=== PATIENT | female | born 1975 | race Caucasian/White ===

== ENCOUNTER → 2021-12-05 14:57 | Outpatient (BNVA) | payer OTHER, SELFPAY | PROVIDERS: PCP Internal Medicine; Visit Provider Nurse Practitioner Family | DX: M54.16 Radiculopathy, lumbar region (principal) | CPT/HCPCS: 99202 ==

== ENCOUNTER 2022-01-21 06:12 | Outpatient (REF) | payer OTHER, SELFPAY ==
--- NOTE | ~2022-01-21 | FL_ITS ---
EXAMINATION: XR FLUOROSCOPY WITH IMAGES CLINICAL INFORMATION: M54.16 - Radiculopathy, lumbar region COMPARISON: CT abdomen and pelvis 08/04/2018 TECHNIQUE: Fluoroscopy performed by Dr. Luc Becker. Fluoroscopy time: 0.1 minutes DAP: 0.293 Gycm2 Images: 2 FINDINGS: There is spinal needle just left of midline at the L4 interlaminar space. FL/FL guidance in treatment room IMPRESSION: Fluoroscopy for pain management procedure.
== END 2022-01-21 06:13 | disposition home or self-care (01) ==
LOC: HO.RADIR 06:12
PROVIDERS: Visit Provider Internal Medicine
DX: M54.16 Radiculopathy, lumbar region (principal)
CPT/HCPCS: 62323; J1040; Q9967

== ENCOUNTER → 2022-02-20 08:04 | Outpatient (BNVA) | payer OTHER, SELFPAY | PROVIDERS: PCP Internal Medicine; Visit Provider Nurse Practitioner Family | DX: M53.3 Sacrococcygeal disorders, not elsewhere classified (principal) | CPT/HCPCS: 99212 ==

== ENCOUNTER 2022-04-24 06:52 | Outpatient (REF) | payer OTHER, SELFPAY ==
--- NOTE | ~2022-04-24 | FL_ITS ---
EXAMINATION: XR FLUOROSCOPY WITH IMAGES CLINICAL INFORMATION: Right sacroiliac joint injection. COMPARISON: None. TECHNIQUE: Fluoroscopy performed by: Rhonda Park. FLUOROSCOPY TIME: 12.1 seconds DAP: 34.43 uGy-cm2 FLUOROSCOPIC IMAGES: 2 FINDINGS: There is a needle positioned at the right SI joint on AP and lateral views. No contrast. There is mild loss of L5-S1 disc height. There is minimal ventral spondylosis at L4-L5 disc level. FL/FL guidance in treatment room IMPRESSION: Fluoroscopy guidance was provided to referring physician for right SI joint injection.
== END 2022-04-24 06:53 | disposition home or self-care (01) ==
LOC: HO.RADIR 06:52
PROVIDERS: Visit Provider Internal Medicine
DX: M54.16 Radiculopathy, lumbar region (principal); M53.3 Sacrococcygeal disorders, not elsewhere classified
CPT/HCPCS: 27096; J1020

== ENCOUNTER 2022-06-03 15:05 | Emergency (ER) | payer OTHER, SELFPAY ==
[2022-06-03 15:38] VITALS: BP 125/84; PULSE 66; RESP 16; TEMP 36.7; O2SAT 97; BMI 27.3
--- NOTE | 2022-06-03 17:29 | ED_ITS ---
HPI - Allergic Reaction General Chief complaint: Allergic Reaction Stated complaint: ?allergic reaction,hives Time Seen by Provider: 06/03/22 17:11 Source: patient Mode of arrival: ambulatory Limitations: no limitations History of Present Illness HPI narrative: Patient comes to the emergency room complaining of poison christina versus poison oak. Patient has been gardening for the last couple of days. Patient has vesicle like rash in her face, chest and upper extremities. Patient states that she was exposed to the plants approximately 2 days ago, but 2 days later she started having the rash. Patient denies chest pain or shortness of breath, no oropharyngeal swelling Related Data Home Medications Medication Instructions Recorded Confirmed estradiol 0.5 mg tablet 0.5 mg PO BEDTIME 12/05/21 12/05/21 gabapentin 100 mg capsule 100 mg PO DAILY 12/05/21 12/05/21 Previous Rx's Medication Instructions Recorded hydrocortisone 2.5 % topical cream 1 appl topical TID #20 grams 06/03/22 prednisone 20 mg tablet 40 mg PO DAILY #3 tabs 06/03/22 Allergies Allergy/AdvReac Type Severity Reaction Status Date / Time shellfish derived Allergy Unknown HIVES Verified 06/03/22 15:38 [SHELLFISH DERIVED] amoxicillin [From Augmentin] AdvReac Severe Diarrhea Verified 06/03/22 15:38 clavulanic acid AdvReac Severe Diarrhea Verified 06/03/22 15:38 [From Augmentin] From Percocet AdvReac Mild STOMACH Uncoded 04/24/22 08:11 UPSET Review of Systems Review of Systems: Constitutional : No Weight loss, No Fever, No Chills, No Night Sweats, No Fatigue, No Malaise ENT/Mouth : No Hearing loss, No Ear Pain, No Nasal Congestion, No Sinus Pain, No Hoarseness, No sore throat, No Rhinorrhea, No Swallowing Difficulty Eyes: No Eye Pain, No Swelling, No Redness, No Foreign Body, No Discharge, No Vision Changes Cardiovascular : No Chest Pain, No SOB, No Dyspnea on Exertion, No Orthopnea, No Edema, No Palpitations Respiratory : No Cough, No Sputum, No Wheezing, No Smoke Exposure, No Dyspnea Gastrointestinal : No Nausea, No Vomiting, No Diarrhea, No Constipation, No abdominal Pain, No Hematochezia, No Melena Genitourinary : no irregular bleeding, No Dysuria, No Urinary Frequency, No Hematuria, No Urinary Incontinence, No Urgency, No Flank Pain, No Urinary Flow Changes, No Hesitancy Musculoskeletal : No joint pain, No Myalgias, No Joint Swelling Skin : Complaining of poison oak versus poison christina rash Neuro : No Weakness, No Numbness, No Paresthesias, No Loss of Consciousness, No Dizziness, No Headache Psych : No Anxiety/Panic, No Depression, No SI/HI/AH/VH, No Social Issues, Heme/Lymph: No Bruising, No Bleeding,No Lymphadenopathy Endocrine : No Polyuria, No Polydipsia, No Temperature Intolerance [facility] Past Medical History Medical History Bilateral breast cysts Congenital renal agenesis and dysgenesis Former smoker GERD (gastroesophageal reflux disease) IBS (irritable bowel syndrome) Lumbar degenerative disc disease Migraines Mild intermittent asthma without complication Social History Social History Advance Directives: No Advance Directives Information Provided: No Physical Exam ED Vital Signs: Vital Signs - 24 hr 06/03/22 15:38 Temperature 98.1 F Pulse Rate 66 Respiratory Rate 16 Blood Pressure 125/84 Pulse Oximetry 97 Oxygen Delivery Method Room Air BMI result Body Mass Index 27.3 Const Other: Appearance: Alert. Oriented X3. No acute distress. Eyes: Pupils equal, round and reactive to light. ENT: Pharynx normal. Neck: Normal inspection. Neck supple. No lymph nodes noted. No crepitus CVS: Normal heart rate and rhythm. Pulses normal. Normal S1 and S2 Respiratory: No respiratory distress. Breath sounds normal. No Wheezing. No rales Abdomen: Soft and nontender. No rigidity. No distention. Skin: Skin warm and dry. Very mild vesicle like rash in upper extremities, face and chest Extremities: No lower extremity edema. No Lacerations. No Rash Neuro: Oriented X 3. No motor deficit. No sensory deficit. Moving all extremities. No slurred speech. CN 2 through 12 grossly intact Psych: calm, cooperative, normal affect Course Course Course Narrative: Patient was given 1 dose of p.o. prednisone. Patient will continue prednisone for a few more days and also topical hydrocortisone Discharge Plan Discharge Clinical Impression: Dermatitis due to plants, including poison christina, sumac, and oak Patient Disposition: Home, Self-Care Instructions: Poison Christina (ED), Cold Compress or Soak (ED) Additional Instructions: Please follow-up with your primary care physician tomorrow. If you have any worsening or new symptoms, please return to the emergency room or call 911 Prescriptions: New prednisone 20 mg tablet 40 mg PO DAILY Qty: 3 0RF hydrocortisone 2.5 % cream 1 appl topical TID Qty: 20 0RF No Action estradiol 0.5 mg tablet 0.5 mg PO BEDTIME gabapentin 100 mg capsule 100 mg PO DAILY
[2022-06-03] MEDS: predniSONE 20 MG TABLET 40 MG PO (17:45)
== END 2022-06-03 17:54 | disposition home or self-care (01) ==
PROVIDERS: Emergency Provider Emergency Medicine; PCP Internal Medicine
DX: L23.7 Allergic contact dermatitis due to plants, except food (principal)
CPT/HCPCS: 99283

== ENCOUNTER 2022-07-08 06:00 | Outpatient (REF) | payer OTHER, SELFPAY | END 2022-07-08 06:01 | disposition home or self-care (01) | LOC: HO.RADIR 06:00 | PROVIDERS: Visit Provider Internal Medicine | DX: Z13.89 Encounter for screening for other disorder (principal) ==

== ENCOUNTER 2022-07-15 06:08 | Outpatient (REF) | payer OTHER, SELFPAY ==
--- NOTE | ~2022-07-15 | FL_ITS ---
EXAMINATION: XR FLUOROSCOPY WITH IMAGES CLINICAL INFORMATION: Radiculopathy lumbar region. COMPARISON: None. TECHNIQUE: Fluoroscopy performed by Dr. Luc Becker. Fluoroscopy time: 0.2 minutes. Cumulative Dose: 5.68 mGy. DAP: 0.779 Gy-cm2. Images: 2. FINDINGS: There is needle positioned in the posterior pleural space at the L4-L5 disc level with contrast opacifying the space. The visualized bones are grossly unremarkable. FL/FL guidance in treatment room IMPRESSION: Fluoroscopy guidance was provided to the referrer for pain management.
== END 2022-07-15 06:09 | disposition home or self-care (01) ==
LOC: CF 06:08
PROVIDERS: Visit Provider Internal Medicine
DX: M54.16 Radiculopathy, lumbar region (principal)
CPT/HCPCS: 62323; J1040; J1100

== ENCOUNTER → 2022-08-17 14:15 | Outpatient (BNVA) | payer OTHER, SELFPAY | PROVIDERS: PCP Internal Medicine; Visit Provider Internal Medicine | DX: M54.16 Radiculopathy, lumbar region (principal) | CPT/HCPCS: 99212 ==

== ENCOUNTER 2022-10-14 06:04 | Outpatient (REF) | payer OTHER, SELFPAY ==
--- NOTE | ~2022-10-14 | FL_ITS ---
EXAMINATION: XR FLUOROSCOPY WITH IMAGES CLINICAL INFORMATION: Radiculopathy. COMPARISON: Fluoroscopy guidance 07/07/2022 for pain management TECHNIQUE: Fluoroscopy Supervised By: Shelli Vazquez. Fluoroscopy Time: 0.1 minutes. DAP: 0.197 Gycm2. Images: 2. FINDINGS: 2 views of lumbar spine reveal a needle positioned at the L4-L5 disc level with contrast opacifying the posterior epidural space. Visualized L5, L4 L3 vertebral heights are normal. FL/FL guidance in treatment room IMPRESSION: Fluoroscopy was provided to referrer for pain management.
== END 2022-10-14 06:05 | disposition home or self-care (01) ==
LOC: CF 06:04
PROVIDERS: Visit Provider Internal Medicine
DX: M54.16 Radiculopathy, lumbar region (principal)
CPT/HCPCS: 62323; J1040

== ENCOUNTER → 2022-11-13 08:16 | Outpatient (BNVA) | payer OTHER, SELFPAY | PROVIDERS: PCP Internal Medicine; Visit Provider Internal Medicine | DX: M53.3 Sacrococcygeal disorders, not elsewhere classified (principal) | CPT/HCPCS: 99212 ==

== ENCOUNTER 2022-12-02 06:05 | Outpatient (REF) | payer OTHER, SELFPAY ==
--- NOTE | ~2022-12-02 | FL_ITS ---
EXAMINATION: XR FLUOROSCOPY WITH IMAGES CLINICAL INFORMATION: Sacrococcygeal disorder. COMPARISON: 04/24/2022 TECHNIQUE: Fluoroscopy Supervised By: Dr. Luc Becker. Fluoroscopy Time: 0.3 minutes. Cumulative Dose: 7.52 mGy-cm DAP: 1.03 Gy-cm2 Images: 3. FINDINGS: Images demonstrate needle overlying the region of the left sacroiliac joint. FL/FL guidance in treatment room IMPRESSION: Intraoperative fluoroscopy for pain management procedure.
== END 2022-12-02 06:06 | disposition home or self-care (01) ==
LOC: CF 06:05
PROVIDERS: Visit Provider Internal Medicine
DX: M53.3 Sacrococcygeal disorders, not elsewhere classified (principal)
CPT/HCPCS: 27096; J1020; J1040

== ENCOUNTER → 2023-01-01 09:40 | Outpatient (BNVA) | payer OTHER, SELFPAY | PROVIDERS: PCP Internal Medicine; Visit Provider Internal Medicine ==

== ENCOUNTER → 2023-03-26 08:19 | Outpatient (BNVA) | payer OTHER, SELFPAY | PROVIDERS: PCP Internal Medicine; Visit Provider Internal Medicine | DX: M54.16 Radiculopathy, lumbar region (principal) | CPT/HCPCS: 99212 ==

== ENCOUNTER 2023-05-07 15:00 | Outpatient (RCR) | payer OTHER, SELFPAY ==
--- NOTE | 2023-04-30 13:55 | MHC.PT.EP ---
[facility] [place] Office [place] Office [place] Office [address] [phone] F: [phone] F: [phone] F: [phone] F: [phone] Physical Therapy Plan of Care Date of Evaluation: Date of Surgery: NA Diagnosis: Radiculopathy, lumbar region, lumbar radiculopathy Assessment: Dulce is a 48 yo female referred to PT for Radiculopathy, lumbar region, lumbar radiculopathy . Impairments include TTP/pain from T11-L5, pain at L SI join and ischial tuberosity, decreased lumbar ROM with pain, B L>R sided hip weakness, L knee weakness d/t pain, positive SLR test, positive SI compression, L radiating pain from LB to knee, and L posterior innominate. Functional limitations include inability to work, difficulty/pain with bending from back, lifting, sleeping without meds, prolonged sitting and prolonged standing, and performing ADLs without medication. PT needed to address aforementioned impairments and functional limitations. PT to include lumbar ROM, extension bias exercises, pain neuroscience education, STM, traction, tape, LE strengthening, standing activities, pt education, and HEP. Frequency and Duration: The patient will be seen 2x week for 6 weeks Short Term Goals: In 3 weeks... 1. Pt will become I with HEP 2. Pt will be able to stand while doing dishes with 50% less pain without taking a rest break Fpc Goals: In 6 weeks... 1. Pt will be able to sleep throughout the night with no LBP pain 2. 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 Manual therapy to restore motion and function. Therapeutic exercise to improve strength and flexibility. Neuromuscular re-education for posture and balance. Therapeutic activities to return to functional activities of daily living. Electronically signed by: Juli Chatterjee PT DTP Please sign and return to therapist. Thank you for your referral.
--- NOTE | 2023-05-24 08:23 | MHC.PT.DC ---
[facility] [place] Office [place] Office [place] Office [address] [phone] F: [phone] F: [phone] F: [phone] F: [phone] Physical Therapy Discharge Report Diagnosis: Radiculopathy, lumbar region, lumbar radiculopathy Date of Surgery: NA Date of Evaluation: 04/30/23 Date of Discharge: 05/24/23 Treatments to Date: 2 Cancellations to Date: 1 No Shows to Date: 3 Discharge Status: Visit Non-compliance Discharge Summary: Dulce only attended only 1 appointment after her evaluation. She no showed 3 and canceled 1. She is therefore being d/c for non compliance. Electronically signed by: Juli Chatterjee PT DPT Please sign and return to therapist. Thank you for your referral.
== END 2023-05-24 08:25 | disposition home or self-care (01) ==
LOC: HO.PT 15:00
PROVIDERS: PCP Internal Medicine; Visit Provider Internal Medicine
DX: M54.16 Radiculopathy, lumbar region (principal)
CPT/HCPCS: 97110; 97112; 97140; 97161

== ENCOUNTER 2023-05-26 05:59 | Outpatient (REF) | payer OTHER, SELFPAY ==
--- NOTE | ~2023-05-26 | FL_ITS ---
EXAMINATION: XR FLUOROSCOPY WITH IMAGES CLINICAL INFORMATION: Radiculopathy, lumbar region. COMPARISON: None available. TECHNIQUE: Fluoroscopy Supervised By: Dr. Luc Becker. Fluoroscopy Time: 0.5 minutes. Cumulative Dose: 7.51 mGy. DAP: 0.774 Gycm2. Images: 4. FINDINGS: There are needles positioned adjacent and inferior to left L4 and L5 pedicles with contrast opacifying the neural foramina. Visualized bones are grossly unremarkable FL/FL guidance in treatment room IMPRESSION: Fluoroscopy was provided to referring physician for pain management.
== END 2023-05-26 06:00 | disposition home or self-care (01) ==
LOC: CF 05:59
PROVIDERS: Visit Provider Internal Medicine
DX: M54.16 Radiculopathy, lumbar region (principal)
CPT/HCPCS: 64483; 64484; J1100

== ENCOUNTER 2023-05-26 07:47 | Outpatient (AMB) | payer OTHER, SELFPAY ==
[2023-05-26 07:54] VITALS: BP 122/68; PULSE 70; RESP 18; O2SAT 97; BMI 28.7
--- NOTE | 2023-05-26 07:54 | A.OFFVIS_ITS ---
Intake Vital Signs 05/26/23 07:54 Height 5 ft Weight 147 lb BMI 28.7 BP 122/68 Blood Pressure Location Rt brachial Position Sitting Respiration 18 Pulse 70 Pulse Source Pulse Oximeter Pulse Oximetry (%) 97 Oxygen Delivery Method Room Air Intake Visit Reasons: Left L4-L5 TFESI Allergies shellfish derived [SHELLFISH DERIVED] Allergy (Unknown, Verified 03/26/23 08:29) HIVES amoxicillin [From Augmentin] Adverse Reaction (Severe, Verified 03/26/23 08:29) Diarrhea clavulanic acid [From Augmentin] Adverse Reaction (Severe, Verified 03/26/23 08:29) Diarrhea epoxy resin Adverse Reaction (Severe, Verified 03/26/23 08:29) Angioedema From Percocet Adverse Reaction (Mild, Uncoded 03/26/23 08:29) STOMACH UPSET HPI Left L4-L5 TFESI HPI Details Patient presents for scheduled procedure. Denies any recent cough, cold, infection, fever or other significant changes in medical history since last office visit. [facility] Medical History Bilateral breast cysts Congenital renal agenesis and dysgenesis Former smoker GERD (gastroesophageal reflux disease) IBS (irritable bowel syndrome) Lumbar degenerative disc disease Migraines Mild intermittent asthma without complication Physical Exam Vital Signs: Last Vital Signs Pulse 70 05/26/23 07:54 Resp 18 05/26/23 07:54 BP 122/68 05/26/23 07:54 Pulse Ox 97 05/26/23 07:54 Oxygen Delivery Method Room Air 05/26/23 07:54 BMI result Body Mass Index 28.7 Office Procedures Details: Transforaminal epidural steroid injection, Left L4 and L5 After obtaining written consent, pre-procedure blood pressure and heart rate were stable and recorded in the nursing record. The patient was placed in the prone position on the fluoroscopy table. The lumbosacral area was prepped with chloraprep, allowed to dry and draped in sterile fashion. Using fluoroscopy, the skin overlying our target was anesthetized with 0.5% lidocaine. A 22 gauge 3.5 inch spinal needle was advanced to the safe triangle in the upper pole of the left L4/5 foramen. No paresthesias were elicited with needle placement and aspiration was negative for blood and CSF. Correct needle position was confirmed with approximately 1 ml contrast dye (Isovue 300 mg/ml) injected under real-time fluoroscopy. No evidence of vascular or intrathecal uptake was seen and there was both epidural and peripheral spread of the contrast agent. 7 mg dexamethasone plus 1 ml containing 0.5% lidocaine was slowly injected. The needle was flushed and removed. The same procedure was repeated for the left L5/S1 level. The skin was cleansed and a sterile bandages were applied. The patient tolerated the procedure well and no complications were encountered. Following the procedure the patient's vital signs were stable. The patient was discharged home in good condition with post-procedural instructions. Time Out: Immediately prior to the procedure, the following was verbally confirmed that there is a signed consent form and that the correct patient, planned procedure, site and side are consistent with documentation and that necessary equipment and/or blood products are available prior to the start of the case. Complications: none EBL: <5 cc 41964 - Lumbar/Sacral 50862 - Lumbar/Sacral, additional level Procedure code (CPT) selection complete Assessment & Plan Assessment & Plan (1) Lumbar radiculopathy: Code(s): M54.16 - Radiculopathy, lumbar region Plan Patient is status post left L4/5 and L5/S1 TFESIs. Patient tolerated procedure well and was discharged home in stable condition with discharge instructions. All questions were answered. We will follow-up via telephone or in clinic to assess response to therapy. A follow-up appointment was made during today's visit. Orders: Orders FL guidance in treatment room Today M54.16 - Radiculopathy, lumbar region Coding Level of Care Code Procedure Only Diagnoses Lumbar radiculopathy M54.16 CPT Codes Transforaminal Epidural Steroid Inj - TESI 3: 48187 - Lumbar/Sacral ([id number]) Transforaminal Epidural Steroid Inj - TESI 4: 43027 - Lumbar/Sacral, additional level ([id number])
== END 2023-05-26 08:22 | disposition home or self-care (01) ==
PROVIDERS: PCP Internal Medicine; Visit Provider Internal Medicine
DX: M54.16 Radiculopathy, lumbar region (principal)
CPT/HCPCS: 64483; 64484

== ENCOUNTER 2023-07-09 08:13 | Outpatient (AMB) | payer OTHER, SELFPAY ==
--- NOTE | 2023-07-09 08:22 | A.OFFVIS_ITS ---
Intake Vital Signs 07/09/23 08:24 Height 5 ft Weight 141 lb BMI 27.5 BP 132/77 Blood Pressure Location Lt brachial Position Sitting Respiration 14 Pulse 72 Pulse Source Pulse Oximeter Pulse Oximetry (%) 99 Oxygen Delivery Method Room Air Intake Visit Reasons: s/p Left L4-L5 TFEST Allergies shellfish derived [SHELLFISH DERIVED] Allergy (Unknown, Verified 07/09/23 08:25) HIVES amoxicillin [From Augmentin] Adverse Reaction (Severe, Verified 07/09/23 08:25) Diarrhea clavulanic acid [From Augmentin] Adverse Reaction (Severe, Verified 07/09/23 08:25) Diarrhea epoxy resin Adverse Reaction (Severe, Verified 07/09/23 08:25) Angioedema From Percocet Adverse Reaction (Mild, Uncoded 07/09/23 08:25) STOMACH UPSET Medication List - Last Reconciled 07/09/23 by Marielle Castro LPN albuterol sulfate 90 mcg/actuation (ProAir HFA) 2 puffs inhalation Q6H PRN epinephrine 0.3 mg IM ONCE PRN fluticasone propionate 110 mcg/actuation (Flovent HFA) 110 mcg inhalation BID gabapentin 100 mg PO DAILY hydrocortisone 2.5% 1 appl topical TID HPI s/p Left L4-L5 TFEST HPI Details 48-year-old female who presents today to the office for a status post left L4-L5 TFESI. The patient reports 90% relief following the procedure. The patient states that her pain has mostly resolved since the last visit. The patient has been performing home exercises at home. She had to discontinue her physical therapy due to transportation issues. The patient has been using high knee socks at home. She has not used SIJ belts in the past. Past procedures: 05/26/23: Transforaminal epidural steroi d injection, Left L4 and L5: 90%relief. 12/02/22: Sacroiliac Joint Injection, Le ft: 50 % relief for 10 days. 10/14/22: Left L4-L5 Interlaminar Parasa gittal SAUMYA ? 70% relief for 1-2 weeks. 07/15/22: L4-L5 Parasagittal Interlaminar SAUMYA ? 80% relief for 3-4 weeks. 04/24/22: Left SIJ injection ? 80% relief for several weeks. 01/21/22: Left Parasagittal L4-L5 Interlam inar SAUMYA ? 70% relief for > 6 weeks. [facility] Medical History Bilateral breast cysts Congenital renal agenesis and dysgenesis Former smoker GERD (gastroesophageal reflux disease) IBS (irritable bowel syndrome) Lumbar degenerative disc disease Migraines Mild intermittent asthma without complication Review of Systems Const All systems reviewed & are unremarkable except as noted in HPI and below Physical Exam Vital Signs: Last Vital Signs Pulse 72 07/09/23 08:24 Resp 14 07/09/23 08:24 BP 132/77 07/09/23 08:24 Pulse Ox 99 07/09/23 08:24 Oxygen Delivery Method Room Air 07/09/23 08:24 BMI result Body Mass Index 27.5 General: Appears afebrile. Alert and oriented. Mood and affect appropriate. Follows and participates in conversation appropriately. Respiratory effort is unlabored. Able to transition from sit to stand unassisted. Ambulates with bilaterally normal heel strike and toe off. Results Reviewed Results Reviewed: No imaging is available for review. Assessment & Plan Assessment & Plan (1) Lumbar radiculopathy: Code(s): M54.16 - Radiculopathy, lumbar region Plan The patient will continue core strengthening and stretching home exercises has already doing. Follow up as needed. Will consider repeat TFESI in the future as needed. Denies symptoms of neurogenic claudication at this time. Scribed for Dr. Becker by Narciso Lowe, biomedical engineering professor, on 07/09/2023. I, Dr. Becker, have personally reviewed and agree with the information entered by the scribe. Coding Level of Care Code Est Pt Level 3 (57081) Diagnoses Lumbar radiculopathy M54.16
[2023-07-09 08:24] VITALS: BP 132/77; PULSE 72; RESP 14; O2SAT 99; BMI 27.5
== END 2023-07-09 08:34 | disposition home or self-care (01) ==
PROVIDERS: PCP Internal Medicine; Visit Provider Internal Medicine
DX: M54.16 Radiculopathy, lumbar region (principal)
CPT/HCPCS: 99213

== ENCOUNTER → 2023-07-09 08:13 | Outpatient (BNVA) | payer OTHER, SELFPAY | PROVIDERS: PCP Internal Medicine; Visit Provider Internal Medicine | DX: M54.16 Radiculopathy, lumbar region (principal) | CPT/HCPCS: 99212 ==